=== PATIENT | male | born 1990 | race Caucasian/White ===

== ENCOUNTER 2019-05-24 14:00 | Emergency (ER) | payer BC ==
[2019-05-24] MEDS ORDERED: KETOROLAC 60 MG/2 ML VIAL IM STA (14:21)
--- NOTE | 2019-05-24 14:25 | ED ---
General Adult HPI - General Chief complaint: Neck Pain/Injury Stated complaint: Neck Pain Time Seen by Provider: 05/24/19 14:14 Source: patient, RN notes reviewed Mode of arrival: ambulatory Limitations: no limitations - History of Present Illness Initial comments: Patient is a pleasant 28-year-old male presenting to the emergency Department with complaints of neck pain. Patient was lifting weights, doing shoulder presses around 8-10 days ago. Patient did feel a little bit of a pop. Patient has discomfort left upper trapezius. This does extend towards the left lateral neck as well as towards the shoulder. Patient does have full range of motion with discomfort. Discomfort increases with turning the head toward the left. Mild discomfort with neck extension. Neck discomfort itself is only minimal. Patient denies any weakness or loss of sensation. No history of chronic similar problems previously. - Related Data Previous Rx's Medication Instructions Recorded Cyclobenzaprine [Flexeril] 10 mg PO TID PRN #12 tablet 05/24/19 predniSONE 20 mg PO BID #10 tab 05/24/19 Allergies Allergy/AdvReac Type Severity Reaction Status Date / Time No Known Allergies Allergy Verified 05/24/19 14:12 Review of Systems ROS Statement: Those systems with pertinent positive or pertinent negative responses have been documented in the HPI. ROS Other: All systems not noted in ROS Statement are negative. 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 No spinous process tenderness) Respiratory exam: Present: normal lung sounds bilaterally Cardiovascular Exam: Present: regular rate, normal rhythm Expanded Peripheral pulses: 2+: Radial (L) GI/Abdominal exam: Present: soft. Absent: distended, tenderness Extremities exam: Present: normal inspection, full ROM. Absent: tenderness Back exam: Present: other (Mild fullness and tenderness left upper trapezius between the neck and shoulder) Neurological exam: Present: alert Expanded Sensory exam: Upper Extremity Light Touch: Normal Motor strength exam: RUE: 5, LUE: 5 Psychiatric exam: Present: normal affect, normal mood Skin exam: Present: normal color Course Vital Signs 05/24/19 05/24/19 14:09 14:23 Temperature 97.9 F Pulse Rate 79 Respiratory 19 Rate Blood Pressure 160/100 154/98 O2 Sat by Pulse 96 Oximetry Medical Decision Making - Medical Decision Making Patient evaluated and updated. Patient and family updated on results and need for follow-up as well as reclamation for follow-up with Dr. Rossi with with a orthopedics. - Radiology Data Radiology results: image reviewed (X-ray of the cervical spine does show no acute fracture or malalignment. There is uncovertebral hypertrophy C6-C7 and intravertebral disc space narrowing.) Disposition Clinical Impression: Cervical radiculopathy Disposition: HOME SELF-CARE Condition: Stable Instructions (If sedation given, give patient instructions): Cervical Strain (ED) Additional Instructions: Please follow-up with primary care physician as well as Dr. Rossi in the next couple days for recheck. No heavy lifting of the left arm. Return for weakness, loss of sensation, worsening symptoms or other concerns. Continue [id number]-[id number] anti-inflammatory such as Motrin or Aleve Prescriptions have been sent to [facility] Avoid weight lifting until released by Prescriptions: Cyclobenzaprine [Flexeril] 10 mg PO TID PRN #12 tablet PRN Reason: Pain predniSONE 20 mg PO BID #10 tab Is patient prescribed a controlled substance at d/c from ED?: No Referrals: Fortunato Lima MD [STAFF PHYSICIAN] - 1-2 days Aye Rossi DO [Doctor of Osteopathic Medicine] - 1-2 days Time of Disposition: 15:42
--- NOTE | 2019-05-24 15:05 | XR ---
EXAMINATION TYPE: XR cervical spine comp DATE OF EXAM: 05/24/2019 TECHNIQUE: Frontal, lateral, oblique, swimmers, and open mouth view of the cervical spine are obtaine d. HISTORY: Neck pain COMPARISON: None FINDINGS: There is straightening of usual cervical lordosis. The cervical spine is visualized in its entirety from C1 thru the top of T1 level, it is satisfactory in alignment without evidence of acute fracture or dislocation. Intervertebral disc space narrowing is seen C6-C7. Mild bilateral neural f oraminal narrowing is also seen at C6-C7. This is secondary to uncovertebral hypertrophy. The pre-mayo tebral soft tissue appears within normal limits. The C1-C2 articulation is within normal limits on t he open mouth view. IMPRESSION: 1. No acute fracture or malalignment is seen in the cervical spine. 2. Uncovertebral hypertrophy C6-C7 and intervertebral disc space nearing creating mild bilateral neur al foraminal narrowing. 3. Straightening of usual cervical lordosis may be on the basis of muscular strain, spasm or patient positioning.
[2019-05-24 15:59] VITALS: BP 149/82; PULSE 71; RESP 16; TEMP 98.2
== END 2019-05-24 15:55 | disposition home or self-care (01) ==
LOC: EC 14:00
DX: M54.12 Radiculopathy, cervical region (principal)
CPT/HCPCS: 72050; 99283; 96372; J1885

== ENCOUNTER 2021-10-17 18:25 | Emergency (ER) | payer BC ==
[2021-10-17 18:37] VITALS: BP 146/98; PULSE 88; RESP 20; TEMP 98.1
--- NOTE | 2021-10-17 20:51 | ED ---
General Adult HPI - General Chief complaint: Recheck/Abnormal Lab/Rx Stated complaint: Covid exposure Time Seen by Provider: 10/17/21 20:37 Source: patient Mode of arrival: ambulatory Limitations: no limitations - History of Present Illness Initial comments: Patient is a 31-year-old male presenting for Covid test. Patient states that his mother recently tested positive, patient admits to bodyaches, sore throat, headache, congestion, chills. Patient states that symptoms started last night. Patient states when he woke up this morning he felt better, as the day went on his symptoms began to worsen. Patient states that he is appearing for testing due to requirements from his job. Patient is vaccinated against COVID-19, he is unsure of his booster status. He denies chest pain, shortness of breath, cough, hemoptysis, neck pain or stiffness, fever, nausea, vomiting, abdominal pain, dysuria, hematuria, urgency, frequency, dysphasia, vision or hearing changes, weakness - Related Data Previous Rx's Medication Instructions Recorded Cyclobenzaprine [Flexeril] 10 mg PO TID PRN #12 tablet 05/24/19 predniSONE [Deltasone] 20 mg PO BID #10 tab 05/24/19 Allergies Allergy/AdvReac Type Severity Reaction Status Date / Time No Known Allergies Allergy Verified 10/17/21 18:37 Review of Systems ROS Statement: Those systems with pertinent positive or pertinent negative responses have been documented in the HPI. ROS Other: All systems not noted in ROS Statement are negative. 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 Absent: scleral icterus ENT exam: Present: normal exam, mucous membranes moist Neck exam: Present: normal inspection Respiratory exam: Present: normal lung sounds bilaterally. Absent: respiratory distress, wheezes, rales, rhonchi, stridor Cardiovascular Exam: Present: regular rate, normal rhythm, normal heart sounds. Absent: systolic murmur, diastolic murmur, rubs, gallop, clicks Neurological exam: Present: alert, oriented X3, CN II-XII intact Psychiatric exam: Present: normal affect, normal mood Skin exam: Present: warm, dry, intact, normal color. Absent: rash Course Vital Signs 10/17/21 18:34 Temperature 98.1 F Pulse Rate 88 Respiratory 20 Rate Blood Pressure 146/98 O2 Sat by Pulse 98 Oximetry Medical Decision Making - Medical Decision Making Patient is a 31-year-old male presenting for Covid testing. Patient was recently exposed to a positive family member. He states that last night he began experiencing chills, body ache, headache, congestion, sore throat. Exam is unremarkable. Patient did test positive for COVID-19. Patient states he is vaccinated, he is unsure of his booster status. I educated the patient on current Covid quarantine guidelines and supportive care measures he can take at home. Instructed him to follow up with his PCP within one week. I educated him on return parameters and alarm symptoms. Report back to ER with any worsening symptoms. I answered all questions. Patient conveyed verbal understanding and agreed to the plan. - Lab Data Lab Results 10/17/21 Range/Units 18:38 Coronavirus (PCR) Detected A (Not Detectd) Disposition Clinical Impression: COVID-19 Disposition: HOME SELF-CARE Condition: Good Instructions (If sedation given, give patient instructions): COVID-19 (Coronavirus Disease 2019) (ED), How to Recover from COVID-19 at Home (ED) Additional Instructions: You have tested positive for Covid 19. Current quarantining guidelines state that you must quarantine at home for 5 days starting today, the following 5 days anytime you are in public you should be wearing a well fitted mask covering both the nose and mouth. Take Motrin Motrin and Tylenol for pain control, fever control, sore throat as needed, Mucinex and Sudafed for congestion and nasal drainage as needed. An [id number] antihistamine may be helpful with treating nasal congestion and ear pressure. Report back to ER if any worsening symptoms, including but not limited to chest pain, shortness of breath, fever unresponsive to Motrin or Tylenol. Follow-up with PCP as instructed. Is patient prescribed a controlled substance at d/c from ED?: No Referrals: None,Stated [Primary Care Provider] - 10/24/21 Time of Disposition: 20:50
== END 2021-10-17 21:05 | disposition home or self-care (01) ==
LOC: EC 18:25
DX: U07.1 COVID-19 (principal)
CPT/HCPCS: 87635; 99284